=== PATIENT | female | born 1965 | race Caucasian/White ===

== ENCOUNTER 2022-09-12 07:49 | Observation (INO) ==
--- NOTE | 2022-08-04 11:26 | PAT Medication Instructions ---
Medication Instructions Date of Service August 04, 2022 Home Medications aspirin 81 mg tablet,delayed release 81 mg PO 3XWK atenolol 50 mg-chlorthalidone 25 mg tablet 1 tab PO QAM calcium carb,cit 300 mg-magnesium cit,ox 150 mg-vit D3 400 unit tablet 1 tab PO QAM cholecalciferol (vitamin D3) 25 mcg (1,000 unit) chewable tablet (Vitamin D3) 25 mcg PO QAM cyclosporine 0.05 % eye drops in a dropperette (Restasis) 1 drp ophthalmic (eye) Q12H diclofenac sodium 75 mg tablet,delayed release 75 mg PO BID PRN Pain irbesartan 150 mg tablet 150 mg PO QAM levothyroxine 175 mcg tablet (Synthroid) 175 mcg PO QAM lorazepam 0.5 mg tablet (Ativan) 0.5 mg PO BID PRN Anxiety pantoprazole 40 mg tablet,delayed release (Protonix) 40 mg PO QAM potassium chloride 10 mEq capsule,extended release 10 meq PO QAM spironolactone 25 mg tablet 25 mg PO BID Continue as directed aspirin 81 mg tablet,delayed release 81 mg PO 3XWK (unless surgeon directed otherwise) ASK your surgeon for instructions diclofenac sodium 75 mg tablet,delayed release 75 mg PO BID PRN Pain DO NOT take the morning of surgery calcium carb,cit 300 mg-magnesium cit,ox 150 mg-vit D3 400 unit tablet 1 tab PO QAM cholecalciferol (vitamin D3) 25 mcg (1,000 unit) chewable tablet (Vitamin D3) 25 mcg PO QAM irbesartan 150 mg tablet 150 mg PO QAM potassium chloride 10 mEq capsule,extended release 10 meq PO QAM spironolactone 25 mg tablet 25 mg PO BID Take morning of surgery With a small sip of water, OTHERWISE NOTHING TO EAT OR DRINK AFTER MIDNIGHT: atenolol 50 mg-chlorthalidone 25 mg tablet 1 tab PO QAM cyclosporine 0.05 % eye drops in a dropperette (Restasis) 1 drp ophthalmic (eye) Q12H levothyroxine 175 mcg tablet (Synthroid) 175 mcg PO QAM lorazepam 0.5 mg tablet (Ativan) 0.5 mg PO BID PRN Anxiety (if needed) pantoprazole 40 mg tablet,delayed release (Protonix) 40 mg PO QAM Take evening before surgery cyclosporine 0.05 % eye drops in a dropperette (Restasis) 1 drp ophthalmic (eye) Q12H lorazepam 0.5 mg tablet (Ativan) 0.5 mg PO BID PRN Anxiety (if needed) spironolactone 25 mg tablet 25 mg PO BID Other Notes If you have any questions please call us at [phone] or [phone] or [phone] or [phone]
--- NOTE | 2022-08-10 14:07 | Anesthesiology Consultation ---
Date of Service August 10, 2022 Assessment & Plan (1) Encounter for pre-operative examination: - COVID screening: Per assessment on 08/10: No known COVID-19 positive contacts or current COVID-19 related symptoms. Travel screen negative. Patient vaccinated. At surgeon discretion if preop Covid testing being done. - LUE limb restrictions s/p mastectomy - Outpatient joint assessment: Pt currently scheduled for inpatient pathway. If surgeon requests review for outpatient joint pathway, patient is an acceptable candidate for outpatient joint program from anesthesia standpoint. Chart Review Chart Review: Acceptable Risk for Surgery and Patient seen in Pre Admission Testing Teaching & Discussion Pre-Anesthesia Teaching/Discussion Notes: Instructed NPO after midnight before surgery,except medications with 15 cc of water. Medication instructions provided according to the PAT guidelines. History Surgery Operation Date: 09/12/22 12:30 Proposed Procedures p Left Total Knee Arthroplasty - Panchito Perez DO Height/Weight Height: 5 ft 3 in Weight: 87 kg Allergies Allergy/AdvReac Type Severity Reaction Status Date / Time clindamycin Allergy Intermediate Hives Verified 08/10/22 12:51 Medications Home Medications Medication Instructions Recorded Confirmed Last Taken aspirin 81 mg tablet,delayed 81 mg PO 3XWK 07/29/22 08/10/22 Unknown release atenolol 50 mg-chlorthalidone 25 1 tab PO QAM 07/29/22 08/10/22 Unknown mg tablet calcium carb,cit 300 mg-magnesium 1 tab PO QAM 07/29/22 08/10/22 Unknown cit,ox 150 mg-vit D3 400 unit tablet cholecalciferol (vitamin D3) 25 25 mcg PO QAM 07/29/22 08/10/22 Unknown mcg (1,000 unit) chewable tablet (Vitamin D3) cyclosporine 0.05 % eye drops in a 1 drp ophthalmic (eye) Q12H 07/29/22 08/10/22 Unknown dropperette (Restasis) diclofenac sodium 75 mg 75 mg PO BID PRN Pain 07/29/22 08/10/22 Unknown tablet,delayed release irbesartan 150 mg tablet 150 mg PO QAM 07/29/22 08/10/22 Unknown levothyroxine 175 mcg tablet 175 mcg PO QAM 07/29/22 08/10/22 Unknown (Synthroid) lorazepam 0.5 mg tablet (Ativan) 0.5 mg PO BID PRN Anxiety 07/29/22 08/10/22 Unknown pantoprazole 40 mg tablet,delayed 40 mg PO QAM 07/29/22 08/10/22 Unknown release (Protonix) potassium chloride 10 mEq 10 meq PO QAM 07/29/22 08/10/22 Unknown capsule,extended release spironolactone 25 mg tablet 25 mg PO BID 07/29/22 08/10/22 Unknown Past Medical History Medical History Anxiety GERD (gastroesophageal reflux disease) Hx of thyroid cancer 2002, s/p radioactive iodine treatment, thyroidectomy HX: breast cancer left (2008) s/p chemo and left breast mastectomy Hyperlipidemia Borderline/no meds Hypertension Hypothyroidism Osteoarthritis Exercise / Class Metabolic Activity II 4-5 Yardwork/Stairs/Walk up hill Past Family History Family History Grandmother (Paternal) Diabetes Past Surgical History Surgical History H/O parathyroidectomy History of section x1 History of colonoscopy History of hysterectomy History of rectal fissure with repair Hx of breast reconstruction R/L Hx of lymph node excision left axillary Hx of total mastectomy of left breast Hx of total thyroidectomy Hx of vein stripping R/L (ablation) Nausea and vomiting after administration of anesthetic agent Past Anesthesia History No Hx of Anesthesia Complications (except PONV) History of PONV No Hx of Motion Sickness and History of PONV Social History Smoking Status: Never smoker Do You Dip or Chew Tobacco: No Hx Alcohol Use: Yes alcohol intake frequency: holidays/special occasions only Hx Substance Use: No substance use type: does not use Review of Systems Patient denies chest pain, shortness of breath, dyspnea on exertion, fever, chills, cough, wheezing, palpitations. Physical Exam Vital Signs VITALS BP 137/89 P 54 TEMP 97.9 SP02 100%RA RESP 16 PHYSICAL Full cervical extension range of motion. Full TMJ range of motion. TMD 3 finger breaths Mallampati Score 1 Dentition: intact, upper right side crown, upper left side bridge Lungs: clear throughout to auscultation Cardiac: regular rate and rhythm, no murmurs noted Spine: normal Carotid arteries: negative bruit Extremities: no edema Lab Results Anesthesia Preop Results Results Anesthesia Widget: WBC 6.91 K/ul (4.8-10.8) 08/10/22 Hgb 13.5 g/dl (12.0-16.0) 08/10/22 Hct 37.9 % (34.1-44.9) 08/10/22 Plt 304 K/uL (130-400) 08/10/22 Na 138 mmol/L (136-145) 08/10/22 K 3.9 mmol/L (3.5-5.1) 08/10/22 Cl 101 mmol/L (98-107) 08/10/22 CO2 28 mmol/L (21-32) 08/10/22 BUN 14 mg/dl (6-23) 08/10/22 Creat 0.89 mg/dl (0.6-1.2) 08/10/22 Glucose Level 84 mg/dl (70-99(Fasting)) 08/10/22 PT 11.0 Seconds (9.0-12.0) 08/10/22 PTT 24.8 Seconds (21.0-31.0) 08/10/22 INR 1.0 (0.9-1.1) 08/10/22 Blood Type AB Positive 08/10/22 Antibody Screen NEGATIVE 08/10/22 Testing Electrocardiogram Date: 08/10/22 SB at 48bpm. Otherwise normal ECG. Chest X-Ray Date: 05/06/22 Findings: + NAD COVID-19 Risk Screen Screening Information COVID-19 Screen Date: 08/10/22 Exposure 21 Days Family/Household +COVID Last 21 Days: No Exposure 10 Days Any COVID Exposure Last 10 Days: No Symptoms Last 10 Days Experienced COVID Sx Last 10 Days: No + COVID 0-90 Days COVID + in Last 0-90 Days: No
--- NOTE | 2022-09-12 06:30 | History & Physical Report ---
Date of Service September 12, 2022 Assessment & Plan (1) Osteoarthritis of left knee: We will proceed with a left total knee arthroplasty. Postoperatively she will be started on aspirin for DVT prophylaxis and kept overnight in the hospital for postoperative medical management. She plans to use [facility] upon discharge. History of Present Illness Chief Complaint: Osteoarthritis of the left knee. Primary Care Provider: Mary Tucker DO Yamilet is a pleasant 56-year-old female who has been dealing with chronic worsening of osteoarthritis of her left knee. It has been going on for years. She has had multiple injections. She has also tried viscosupplementation and physical therapy. X-rays and clinical examination been diagnostic for worsening osteoarthritis. After failing conservative treatment, she has elected proceed with a left total knee arthroplasty. Allergies Allergy/AdvReac Type Severity Reaction Status Date / Time clindamycin Allergy Intermediate Hives Verified 08/10/22 12:51 Home Medications Medication Instructions Recorded Confirmed Type aspirin 81 mg tablet,delayed 81 mg PO 3XWK 07/29/22 08/10/22 History release atenolol 50 mg-chlorthalidone 25 1 tab PO QAM 07/29/22 08/10/22 History mg tablet calcium carb,cit 300 mg-magnesium 1 tab PO QAM 07/29/22 08/10/22 History cit,ox 150 mg-vit D3 400 unit tablet cholecalciferol (vitamin D3) 25 25 mcg PO QAM 07/29/22 08/10/22 History mcg (1,000 unit) chewable tablet (Vitamin D3) cyclosporine 0.05 % eye drops in a 1 drp ophthalmic (eye) Q12H 07/29/22 08/10/22 History dropperette (Restasis) diclofenac sodium 75 mg 75 mg PO BID PRN Pain 07/29/22 08/10/22 History tablet,delayed release irbesartan 150 mg tablet 150 mg PO QAM 07/29/22 08/10/22 History levothyroxine 175 mcg tablet 175 mcg PO QAM 07/29/22 08/10/22 History (Synthroid) lorazepam 0.5 mg tablet (Ativan) 0.5 mg PO BID PRN Anxiety 07/29/22 08/10/22 History pantoprazole 40 mg tablet,delayed 40 mg PO QAM 07/29/22 08/10/22 History release (Protonix) potassium chloride 10 mEq 10 meq PO QAM 07/29/22 08/10/22 History capsule,extended release spironolactone 25 mg tablet 25 mg PO BID 07/29/22 08/10/22 History Past Med/Surg History Medical History Anxiety GERD (gastroesophageal reflux disease) Hx of thyroid cancer 2002, s/p radioactive iodine treatment, thyroidectomy HX: breast cancer left (2008) s/p chemo and left breast mastectomy Hyperlipidemia Borderline/no meds Hypertension Hypothyroidism Osteoarthritis Surgical History H/O parathyroidectomy History of section x1 History of colonoscopy History of hysterectomy History of rectal fissure with repair Hx of breast reconstruction R/L Hx of lymph node excision left axillary Hx of total mastectomy of left breast Hx of total thyroidectomy Hx of vein stripping R/L (ablation) Nausea and vomiting after administration of anesthetic agent Family History Grandmother (Paternal) Diabetes Social History Smoking Status: Never smoker Second Hand Exposure: Yes ( smokes outside); Hx Alcohol Use: Yes Hx Substance Use: No Preferred Language: Emir[place] Communication Ability: Effective Direct Selling Counselor Required: No Beliefs That Will Affect Care: None Current Living Situation: Spouse Feels Safe at Home: Yes Assistive Devices: Glasses Review of Systems All systems reviewed & are unremarkable except as noted in HPI & below. Physical Exam On physical examination of the left knee, she has a slight varus deformity. She has tenderness palpation of the distal medial femoral condyle and over the medial joint line.. Constitutional WD/WN, vitals as above Eyes PERRL, conjunctivae normal, anicteric sclerae ENMT external ear and nose normal, oropharynx normal Neck trachea midline, no thyromegaly Respiratory normal respiratory effort, lungs clear to auscultation Cardiovascular RRR, no murmur, no edema Gastrointestinal (Abdomen) normal bowel sounds, soft, nontender, no hepatosplenomegaly Skin no rashes, warm and dry Psychiatric A+Ox3, euthymic affect Results & Data Results & Data Laboratory Results . Diagnostic Findings X-rays of the left knee show advanced osteoarthritis with joint space narrowing, osteophyte formation, and [id number] articulation. PG Care Time/CCT Total # of Minutes Spent Total Time Spent with Patient: Total time spent is greater than 50% in coordination of care (as documented) at patient's floor/unit and/or counseling patient: Coding Level of Care Code None Diagnoses Osteoarthritis of left knee M17.12
[~2022-09-12 07:49] MED LIST: ACETAMINOPHEN 500 MG TAB PO SCH; BUPIVACAINE 0.25% 30 ML VIAL ONE; BUPIVACAINE 0.5 % 5 MG/1 ML PF 10ML VIAL ONE; FAMOTIDINE 20 MG TAB PO SCH; GABAPENTIN 600 MG DOSE PO SCH; Ketorolac (*for OR use only*) 30 MG, dexAMETHasone 4 MG, KETAMINE HCL (**OR use only) 1... INFIL SCH; LR 500ML BOLUS, THEN 15ML/HR IV SCH; LR 60ML/HR IV SCH; TRANEXAMIC ACID 1,000 MG **IV Intra-op IV SCH; TRANEXAMIC ACID 1,000 MG **IV Pre-op IV SCH; ceFAZolin 2000MG 2,000 MG/15 ML SYR IV SCH; dexAMETHasone 4 MG TAB PO SCH
[2022-09-12] MEDS ORDERED: ePHEDrine sulfate 50 MG/ML AMP IV PRN (09:22)
[2022-09-12] MEDS ORDERED: ONDANSETRON INJ 2 MG/ML 2 ML VIAL IV PRN ×2 (09:22→14:12)
[2022-09-12] MEDS ORDERED: ATROPINE SULFATE 0.1 MG/ML 10ML SYR IV PRN (09:22)
[2022-09-12] MEDS ORDERED: fentaNYL citrate 100 MCG/2 ML VIAL IV PRN (09:22)
[2022-09-12] MEDS ORDERED: DEXAMETHASONE SOD INJ 4 MG/ML VIAL ONE (09:36)
[2022-09-12] MEDS ORDERED: PROPOFOL IV EMULSION 10 MG/ML 20 ML VIAL IV ONE (09:36)
[2022-09-12] MEDS ORDERED: LIDOCAINE 2% MPF LOCAL 5 ML VIAL INFIL ONE (09:36)
[2022-09-12] MEDS ORDERED: MIDAZOLAM HCL 1 MG/ML 2ML VIAL ONE (09:37)
[2022-09-12] MEDS ORDERED: fentaNYL citrate 100 MCG/2 ML VIAL ONE (09:37)
[2022-09-12] MEDS ORDERED: ORTHO JOINT ANESTHETIC ONE (10:50)
[2022-09-12] MEDS ORDERED: ePHEDrine sulfate 50 MG/ML AMP ONE (11:42)
--- NOTE | 2022-09-12 12:22 | Operative Report ---
PG Post Operative Report Pre & Post Diagnosis Operation Date: 09/12/22 10:40 Pre-Op Diagnosis: Left Knee Osteoarthritis Post-Op Diagnosis: Left Knee Osteoarthritis I identified the patient and participated in the time-out.: Yes Procedure Operation Date: 09/12/22 10:40 Actual Procedures p Left Total Knee Arthroplasty(Left) - Panchito Perez DO Surgeon Panchito Perez DO [employer] Panchito Naik PA-C Estimated Blood Loss 20 Findings Consistent with Post-Op Diagnosis Specimens Left femoral and tibial bone Description of Procedure Implants used: I used a Cheli Persona total knee arthroplasty system with a size 9 PS femur, E tibia, 31 oval patella, and a size 12 CPS polyethylene bearing. All components were cemented in place with Biomet cement. Yamielt arrived [facility] for the above procedure. She was seen in the preoperative holding area and the operative extremity was identified and signed. She was given a preoperative antibiotic, TXA, a spinal anesthetic and an adductor nerve block. She was taken back to the operating room and laid on the table in supine position. She was given basic sedation. The operative knee was then prepped and draped in sterile fashion. A timeout was done, and the patient and the operative extremity was properly identified. A midline incision was made directly over the patella. Dissection was taken down to the extensor mechanism. A midvastus arthrotomy was used. The medial retinaculum was released and the fat pad was mostly excised. The knee was flexed and the ACL, PCL, and meniscus were removed. A drill was sent down the center of the femoral canal followed by an intramedullary chana. Off that chana a distal femoral cutting block was placed. 9 mm was resected off the distal femur at 5 of valgus. A posterior referencing AP sizing guide was then placed on the distal femur. The femur measured to be a size 9. 2 drill holes were placed in 3 of external rotation. A 4-in-1 cutting block was then impacted into place. Anterior, posterior, and chamfer cuts were then made. The proximal tibia was then exposed. An external tibial alignment guide was placed. A tibial cut guide was then anchored in place and the proximal tibia was then resected. The posterior aspect of the knee was then opened up and any additional meniscus fragments and osteophytes were removed. The tibia measured to be a size E. The tibial plate was then placed in the appropriate rotation and the tibia was drilled and punched. Trial components were then placed. I used a size 12 CPS polyethylene insert. The knee was brought through a full range of motion and felt to be stable. The peg holes for the femoral component were then drilled. The patella was then everted and 9 mm was resected off the posterior aspect of the patella. The patella measured to be a size 31 oval. 3 peg holes were then drilled. A trial patella was placed. The knee was once again brought through a full range of motion and felt to be stable. Trial components were then removed. The surrounding soft tissues were injected with 100 cc of an orthopedic pain control cocktail. All components were then cemented into place with Biomet cement. The final polyethylene insert was then snapped into place. Once cement was dry the tourniquet was deflated. Hemostasis was obtained. A dilute betadyne lavage was then done for 3 minutes. The joint was then irrigated with normal saline solution. The midvastus arthrotomy was then closed with #1 Vicryl suture. The skin was closed with 2-0 Vicryl, 3-0V lock suture, and yolanda. A soft compressive dressing was placed. She was then transferred to a hospital bed and taken to the postanesthesia care unit in stable condition. She tolerated the procedure well. Panchito Naik PA-C, was present for the entire procedure. He was critical for patient positioning, prepping, draping, retraction exposure, wound closure and application of sterile dressing. I attest to the content of the Intraoperative Record and any orders documented therein. Any exceptions are noted below.
--- NOTE | 2022-09-12 13:01 | XRay Report ---
LEFT KNEE 2 VIEWS History: Left total knee arthroplasty. Degenerative arthritis. Postop. FINDINGS: The patient is status post a left total knee arthroplasty. The hardware is intact. No fract ure or dislocation. Skin yolanda are in place. IMPRESSION: Left total knee arthroplasty. No evidence for hardware complication. ACT 112: Negative or not required by law. Electronically signed by: Gerson Gustafson M.D. 09/12/2022 1:00 PM
--- NOTE | 2022-09-12 14:00 | Anesthesiology Progress Note ---
Date of Service September 12, 2022 Anesthesia Post Procedure Vital Signs Vital Signs: Temp Pulse Pulse Resp BP Pulse Ox O2 Del Method 09/12/22 13:50 50 L 15 114/66 94 Room Air 09/12/22 13:40 51 L 13 123/74 97 Room Air 09/12/22 13:30 50 L 15 119/73 93 Room Air 09/12/22 13:20 52 L 15 123/68 93 Room Air 09/12/22 13:10 54 L 15 120/67 93 Room Air 09/12/22 12:50 57 L 20 116/68 98 Oxymask 09/12/22 13:00 36.4 C L 66 15 146/89 H 95 Room Air 09/12/22 12:42 37 C 69 14 105/76 100 Oxymask 09/12/22 08:15 37 C 54 L 20 134/73 99 Room Air O2 Flow Rate 09/12/22 13:50 09/12/22 13:40 09/12/22 13:30 09/12/22 13:20 09/12/22 13:10 09/12/22 12:50 12 09/12/22 13:00 09/12/22 12:42 12 09/12/22 08:15 Transfer of Care Handoff Completed per policy Notes Mental Status: alert / awake / arousable Patient Amnestic to Procedure: Yes Nausea / Vomiting: adequately controlled Pain: adequately controlled Airway Patency, RR, SpO2: stable & adequate BP & HR: stable & adequate Hydration State: stable & adequate Neuraxial Anesthesia: was administered and sensory block is resolving Anesthetic Complications: no major complications apparent and Pt Satisfied with anesthetic care
[2022-09-12] MEDS ORDERED: HYDROmorphone INJ 0.5 MG/0.5 ML SYR IV PRN (14:12)
[2022-09-12] MEDS ORDERED: LORazepam 0.5 MG TAB PO PRN (14:12)
[2022-09-12] MEDS ORDERED: METOCLOPRAMIDE HCL INJ 5 MG/ML 2 ML VIAL IV PRN (14:12)
[2022-09-12] MEDS ORDERED: oxyCODONE HCL IR 5 MG TAB (IMMEDIATE RELEASE) PO PRN (14:12)
[2022-09-12] MEDS ORDERED: SODIUM CHLORIDE 0.9% 1000ML 1,000 ML IV SCH (14:12)
[2022-09-12] MEDS ORDERED: bisacodyL 10 MG SUPP PR PRN (14:12)
[2022-09-12] MEDS ORDERED: NALOXONE HCL 0.4 MG/1 ML VIAL/CARP IV PRN (14:12)
[2022-09-12] MEDS ORDERED: MAGNESIUM HYDROXIDE SUSP 30 ML UDC PO PRN (14:12)
[2022-09-12] MEDS: ACETAMINOPHEN 500 MG TAB PO SCH ×2 (15:00→22:09)
[2022-09-12] MEDS: KETOROLAC 30 MG/ML VIAL IV SCH ×2 (15:00→19:51)
[2022-09-12] MEDS: ORDER AWAITING ACTION: Cyclosporine [Restasis] 0.05 % Dropperette SCH ×2 (15:09→22:10)
[2022-09-12] MEDS: DOCUSATE SODIUM 100 MG CAP PO SCH (19:50)
[2022-09-12] MEDS: ASPIRIN 81 MG ECTAB PO SCH (19:50)
[2022-09-12] MEDS: SPIRONOLACTONE 25 MG TAB PO SCH (19:50)
[2022-09-12] MEDS: ceFAZolin 2000MG 2,000 MG/15 ML SYR IV SCH (19:51)
[2022-09-12] MEDS ORDERED: SENNA 8.6 MG TAB PO SCH (21:00)
[2022-09-13] MEDS: KETOROLAC 30 MG/ML VIAL IV SCH ×2 (03:11→08:54)
[2022-09-13] MEDS: ceFAZolin 2000MG 2,000 MG/15 ML SYR IV SCH (03:17)
[2022-09-13] MEDS: ACETAMINOPHEN 500 MG TAB PO SCH (05:53)
--- NOTE | 2022-09-13 06:24 | Orthopedic Progress Note ---
Date of Service September 13, 2022 Assessment & Plan (1) Status post left knee replacement: Overall she is doing very well. She is not having much pain in the left knee. She will be seen by physical therapy today for ambulation and range of motion exercises. She is on aspirin for DVT prophylaxis. She can be discharged home later today. She will follow-up orthopedics in 2 weeks. Jose Woodard was seen and examined at bedside this morning. Overall she is doing very well. She is not having much pain in the left knee. She has been up and ambulating to the bathroom. She has no complaints.. Review of Systems All systems reviewed & are unremarkable except as noted in HPI & below. Physical Exam On physical examination of the left knee, the dressing is clean and dry. Her leg is out full extension. She has active dorsiflexion plantarflexion of her left ankle.. Results & Data Results & Data Laboratory Results . Diagnostic Findings Postoperative x-rays of the left knee show the prosthesis to be in anatomic alignment without any evidence of fracture, screws, or loosening.. PG Care Time/CCT Total # of Minutes Spent Total Time Spent with Patient: Total time spent is greater than 50% in coordination of care (as documented) at patient's floor/unit and/or counseling patient: Coding Level of Care Code 50738 Post Operative Follow-Up Diagnoses Status post left knee replacement Z96.652
--- NOTE | 2022-09-13 06:25 | Discharge Summary ---
Date of Service September 13, 2022 Admission HPI (Per Admitting) Yamilet is a pleasant 56-year-old female who has been dealing with chronic worsening of osteoarthritis of her left knee. It has been going on for years. She has had multiple injections. She has also tried viscosupplementation and physical therapy. X-rays and clinical examination been diagnostic for worsening osteoarthritis. After failing conservative treatment, she has elected proceed with a left total knee arthroplasty. Admission Exam (Per Admitting) On physical examination of the left knee, she has a slight varus deformity. She has tenderness palpation of the distal medial femoral condyle and over the medial joint line.. Principal Diagnosis Same as "Discharge Diagnosis" noted below under Discharge Instructions. Discharge Exam On physical examination of the left knee, the dressing is clean and dry. Her leg is out full extension. She has active dorsiflexion plantarflexion of her left ankle.. Discharge Data Procedures Performed Operation Date: 09/12/22 10:40 Actual Procedures p Left Total Knee Arthroplasty(Left) - Panchito Perez DO Ordered Studies 09/12/22 05:00 US - OR guided needle placemen Routine Hospital Course (1) Status post left knee replacement: On September 12, 2022 Yamilet arrived at [facility] and underwent a left knee replaced without complication. She had a spinal anesthetic. Postoperatively she was started on aspirin for DVT prophylaxis and transferred to the general orthopedic floors. Her hospital course was uneventful. On postop day #1, her vital signs were stable and her pain was well controlled. She was able to participate well with physical therapy doing ambulation and range of motion exercises. She was then discharged home. She will follow with orthopedics in 2 weeks. PG Care Time/CCT Total # of Minutes Spent Total Time Spent with Patient: Total time spent is greater than 50% in coordination of care (as documented) at patient's floor/unit and/or counseling patient: Discharge Plan Discharge Items Patient Disposition: Home - Home Health Services Reason For Visit: DJD Knee left Discharge Diagnosis: Left knee replacement Activity: Per Instructions section Non-emergency contact: Surgeon Call non-emergency contact if: your wound has increased redness and your wound has increased drainage Follow-up/Referrals: Mary Tucker DO [Primary Care Provider] - Diet: Regular Addtl Attending Provider Instructions: Activity and Therapy Recommendations: * If you are using [facility] then therapy will be provided at your home until they feel you have accomplished all of your goals. * If you are using [facility] then Physical Therapy will be provided until they feel you are ready to start Outpatient Physical Therapy. * If you are not using home therapy then Outpatient Physical Therapy should start about 3-5 days from your day of surgery. Therapy will last about 6-10 weeks * It is important not to put a pillow under your knee when you are relaxing or sleeping. It is just as important to make sure you are getting your knee perfectly straight as it is to regain your knee bend. * You were shown a series of exercises in the hospital. Do these exercises three times each day including the exercises you were shown in physical therapy. * Get up and walk several times each day. For the first four weeks, try not to stand or walk for more than one hour at a time. If you do stand or walk for more than one hour, you will not hurt anything, but your leg will likely swell. * As you feel comfortable, you may change from the walker or crutches to a cane and then to independent walking. Medications: * Narcotic You will likely be sent home from the hospital with a prescription for the narcotic pain medication that worked best throughout your stay. * Aspirin Most patients will be required to take Aspirin 81mg twice a day for 6 weeks after surgery. This is obtained [id number] and a prescription is not necessary. * Other medications may be prescribed for specific circumstances. If you have any questions, please call the office at . * Resume previous home medications unless otherwise instructed TEDs/Elastic Stockings: The white elastic stockings help limit swelling and prevent blood clots from forming in your legs.~ The more you wear them, the more they work. Wear them for six weeks. Dressing Care: The dressing can be changed after physical therapy on postop day #1. Daily dry dressing changes for a few days, especially if the incision is still draining some. If the incision is not draining then you may leave the yolanda open to air. If there is a little bit of drainage or if the yolanda are getting stuck on your clothing then cover the incision with a dry dressing. The yolanda will be removed at your 2 week follow-up appointment. Showering: You may shower 5 days from the day of surgery as long as the incision is no longer draining. You may shower with the yolanda exposed. Let soapy water run over the yolanda and pat them dry. Do not scrub or soak the incision. Things To Watch For: * Drainage from the incision site that occurs more than one week after your surgery. * Increased redness at the incision site. * Fever above 102 degrees Fahrenheit. * Unusual chest pain or shortness of breath. * Call [facility] at with any of the above problems Follow-Up Visit: Follow-up with Dr. Perez's PA (Panchito Naik) 2-3 weeks after your day of surgery. He will remove your yolanda and answer any questions. If you have any additional questions or concerns, Dr Perez is usually in the office at the same time and will be available An appointment was probably scheduled when you signed-up for surgery in the office. If you have any questions call Office Instructions: More detailed instructions as well as Frequently Asked Questions were provided in a folder by our office when you signed-up for surgery. Please review these instructions when you get home. If you have any further questions or concerns, please feel free to call the office at [phone] Pending Studies at Discharge: No Stand-Alone Forms: [facility] Medications and DC Order Prescriptions: Continued levothyroxine [Synthroid] 175 mcg Tablet 175 mcg PO QAM potassium chloride 10 mEq Capsule, Extended Release 10 meq PO QAM atenolol-chlorthalidone 50-25 mg Tablet 1 tab PO QAM spironolactone 25 mg Tablet 25 mg PO BID lorazepam [Ativan] 0.5 mg Tablet 0.5 mg PO BID PRN (Reason: Anxiety) pantoprazole [Protonix] 40 mg Tablet,Delayed Release (Dr/Ec) 40 mg PO QAM irbesartan 150 mg Tablet 150 mg PO QAM cyclosporine [Restasis] 0.05 % Dropperette 1 drp OPHTHALMIC (EYE) Q12H cholecalciferol (vitamin D3) [Vitamin D3] 25 mcg (1,000 unit) Tablet,Chewable 25 mcg PO QAM calcium carb,cit-mag cit,ox-D3 300 mg-150 mg- 400 unit Tablet 1 tab PO QAM diclofenac sodium [Voltaren] 75 mg Tablet,Delayed Release (Dr/Ec) 75 mg PO BID PRN (Reason: Pain) Changed aspirin 81 mg Tablet,Delayed Release (Dr/Ec) 81 mg PO BID 42 Days Qty: 0 0RF Admission Data Admit Date/Time: 09/12/22 12:42 Attending Provider: Panchito Perez Admit Provider: Panchito Perez Primary Care Provider: Mary Tucker
[2022-09-13] MEDS ORDERED: LEVOTHYROXINE SODIUM 175 MCG TABLET PO SCH (06:30)
[2022-09-13] MEDS: ORDER AWAITING ACTION: Cyclosporine [Restasis] 0.05 % Dropperette SCH (07:35)
[2022-09-13] MEDS ORDERED: dexAMETHasone 4 MG TAB PO SCH (08:00)
[2022-09-13] MEDS: ASPIRIN 81 MG ECTAB PO SCH (08:53)
[2022-09-13] MEDS: DOCUSATE SODIUM 100 MG CAP PO SCH (08:53)
[2022-09-13] MEDS: SPIRONOLACTONE 25 MG TAB PO SCH (08:54)
[2022-09-13] MEDS ORDERED: POTASSIUM CHLORIDE 10 MEQ TABCR PO SCH (09:00)
[2022-09-13] MEDS ORDERED: ATENOLOL 50 MG TABLET PO SCH ×2 (09:00)
[2022-09-13] MEDS ORDERED: IRBESARTAN 150 MG TAB PO SCH (09:00)
[2022-09-13] MEDS ORDERED: CHLORTHALIDONE 25 MG TAB PO SCH (09:00)
[2022-09-13] MEDS ORDERED: MULTIVITAMIN TAB PO SCH (09:00)
[2022-09-14] MEDS ORDERED: ATENOLOL 50 MG TABLET PO SCH (09:00)
== END 2022-09-13 11:43 | disposition home health service (06) ==
LOC: ASU 07:49 → 3W 07:49